=== PATIENT | female | born 2000 | race Caucasian/White ===

== ENCOUNTER 2019-02-04 21:07 | Emergency (ER) | payer SELFPAY ==
[2019-02-04 21:27] LABS: Pregnancy Test - Urine (BHCG) POSITIVE (Negative)
[2019-02-04 21:28] LABS: Pregu Control Background? CLEAR/WHITE (CLR/WHITE); Pregu Control Bar Appear? YES (CONTROL BAR); Specific Gravity 1.002 (1.002-1.036)
[2019-02-04 21:30] LABS: Clarity Cloudy (Clear); Specific Gravity, Urine 1.002 (1.002-1.036); pH, Urine 5.5 (5.0-9.0)
[2019-02-04 21:31] LABS: Bilirubin Negative (Negative); Blood, Urine Trace (Negative); Glucose, Urine (Dipstick) Negative (Negative); Leukocyte Large (Negative); Nitrite Negative (Negative); Protein, Urine (Dipstick) Negative (Neg-Trace); Urobilinogen 0.2 mg/dL (0.2-1.0)
[2019-02-04 21:38] LABS: Bacteria/HPF Rare-Few HPF (None Seen); RBC/HPF 0-3 HPF (0-3); Squamous Epithelial 0-3 HPF (0-3)
[2019-02-04 21:55] LABS: #Basophils 0.1 thou/uL (0.0-0.2); #Eosinphils 0.2 thou/uL (0.0-0.7); #Lymphocytes 3.3 thou/uL (1.20-3.40); #Monocytes 0.6 thou/uL (0.11-0.59); #Neutrophils 5.9 thou/uL (1.40-6.50); %Basophils 0.9 % (0.0-1.0); %Eosinophils 1.7 % (0.0-10.0); %Lymphocytes 33.2 % (28.0-48.0); %Neutrophils 58.3 % (31.0-61.0); Hemoglobin 13.9 g/dL (12.0-16.0); Mean Corpuscular HGB CONC 33.1 g/dL (32.0-36.0); Mean Corpuscular Hemoglobin 30.1 pg (25.0-35.0); Mean Corpuscular Volume 90.7 fL (78.0-98.0); Mean Platelet Volume 6.7 fL (7.4-10.4); Platelet Count 291 thou/uL (130-400); Red Blood Cell (RBC) Count 4.63 mill/uL (4.00-5.20); White Blood Cell (WBC) Count 10.1 thou/uL (4.8-10.8)
[2019-02-04 22:05] LABS: Anion Gap 15 mmol/L (10-20); BUN (Urea Nitrogen) 5 mg/dL (7.0-18.7); Calc. Creatinine Clearance 0 mL/min (70-130); Carbon Dioxide 22 mmol/L (22-29); Chloride 104 mmol/L (98-107); Estimated GFR-MDRD Greater than 90; Glucose 85 mg/dL (70-105); Potassium 3.6 mmol/L (3.5-5.1); Sodium 137 mmol/L (136-145)
== END 2019-02-04 22:00 | disposition short-term general hospital (02) ==
LOC: BURERS 21:07
DX: O08.83 Urinary tract infection following an ectopic and molar pregnancy (principal); O00.90 Unspecified ectopic pregnancy without intrauterine pregnancy; Z3A.01 Less than 8 weeks gestation of pregnancy
CPT/HCPCS: 80048; 81003; 81015; 81025; 84702; 85025; 87086; 99284

== ENCOUNTER 2019-09-13 23:47 | Emergency (ER) | payer OTHER ==
[2019-09-14 00:31] LABS: #Basophils 0.1 thou/uL (0.0-0.2); #Eosinphils 0.1 thou/uL (0.0-0.7); #Lymphocytes 3.7 thou/uL (1.20-3.40); %Basophils 0.5 % (0.0-1.0); %Eosinophils 0.5 % (0.0-10.0); %Lymphocytes 23.1 % (21.0-51.0); %Monocytes 6.2 % (0.0-10.0); %Neutrophils 69.7 % (42.0-75.0); Hemoglobin 12.9 g/dL (12.0-16.0); Mean Corpuscular HGB CONC 32.4 g/dL (32.0-36.0); Mean Corpuscular Hemoglobin 31.3 pg (27.0-31.0); Mean Corpuscular Volume 96.6 fL (78.0-98.0); Platelet Count 269 thou/uL (130-400); RBC Distribution Width 12.1 % (11.5-14.5); Red Blood Cell (RBC) Count 4.13 mill/uL (4.20-5.40); White Blood Cell (WBC) Count 15.8 thou/uL (4.8-10.8)
[2019-09-14 00:37] LABS: Bilirubin Negative (Negative); Blood, Urine Negative (Negative); Clarity Slightly Cloudy (Clear); Glucose, Urine (Dipstick) Negative (Negative); Leukocyte Large (Negative); Nitrite Negative (Negative); Protein, Urine (Dipstick) Negative (Neg-Trace)
[2019-09-14 00:37] LABS: ALT (SGPT) Less than 7 U/L (8-55); AST (SGOT) 11 U/L (5-34); Albumin 3.7 g/dL (3.5-5.0); Alkaline Phosphatase 146 U/L (40-110); Anion Gap 15 mmol/L (10-20); BUN (Urea Nitrogen) 5 mg/dL (7.0-18.7); Bilirubin, Total 0.6 mg/dL (0.2-1.2); Calc. Creatinine Clearance 0 mL/min (70-130); Calcium 9.3 mg/dL (7.8-10.44); Carbon Dioxide 24 mmol/L (22-29); Chloride 104 mmol/L (98-107); Estimated GFR-MDRD Greater than 90; Globulin 3.6 g/dL (2.4-3.5); Glucose 78 mg/dL (70-105); Magnesium 1.8 mg/dL (1.6-2.6); Potassium 3.6 mmol/L (3.5-5.1); Protein, Total 7.3 g/dL (6.0-8.3); Sodium 139 mmol/L (136-145)
[2019-09-14 00:38] LABS: Bacteria/HPF 2+ HPF (None Seen); Transitional Epithelial 0-3 HPF (None Seen)
[2019-09-14] MEDS ORDERED: Cephalexin 250 MG CAP ONE (00:47)
== END 2019-09-14 00:52 | disposition home or self-care (01) ==
LOC: BURERS 23:47
DX: O99.89 Other specified diseases and conditions complicating pregnancy, childbirth and the puerperium (principal); R82.71 Bacteriuria; Z3A.38 38 weeks gestation of pregnancy; O99.333 Smoking (tobacco) complicating pregnancy, third trimester; F17.210 Nicotine dependence, cigarettes, uncomplicated
CPT/HCPCS: 80053; 81003; 81015; 83735; 84550; 85025; 87086; 99284

== ENCOUNTER 2020-03-03 13:34 | Emergency (ER) | payer MEDICAID, SELFPAY | END 2020-03-03 14:06 | disposition home or self-care (01) | LOC: BURERS 13:34 | DX: S16.1XXA Strain of muscle, fascia and tendon at neck level, initial encounter (principal); F17.210 Nicotine dependence, cigarettes, uncomplicated; V40.5XXA Car driver injured in collision with pedestrian or animal in traffic accident, initial encounter | CPT/HCPCS: 99283 ==

== ENCOUNTER 2022-03-02 12:10 | Emergency (ER) | payer MEDICAID, SELFPAY ==
[2022-03-02] MEDS ORDERED: Ondansetron PF 4 MG/2 ML Vial ONE (12:43)
[2022-03-02] MEDS ORDERED: Famotidine/PF 20 mg/2ml Vial ONE (12:43)
[2022-03-02] MEDS ORDERED: Glycopyrrolate 0.4 MG/ 2 ML VIAL ONE (12:43)
[2022-03-02 12:45] LABS: Bilirubin Large (Negative); Blood, Urine Large (Negative); Clarity Turbid (Clear); Glucose, Urine (Dipstick) 100 mg/dL (Negative); Ketone, Urine 40 mg/dL (Negative); Leukocyte Negative (Negative); Nitrite Negative (Negative); Protein, Urine (Dipstick) > or equal to 300 mg/dL (Neg-Trace); Specific Gravity, Urine 1.031 (1.002-1.036)
[2022-03-02 12:50] LABS: Bacteria/HPF 3+ HPF (None Seen); Mucous/LPF 4+ LPF (<2+); RBC/HPF Greater than 50 HPF (0-3)
[2022-03-02 12:59] LABS: Hemoglobin 14.4 g/dL (12.0-16.0); Mean Corpuscular HGB CONC 32.4 g/dL (32.0-36.0); Mean Corpuscular Hemoglobin 32.6 pg (27.0-31.0); Mean Platelet Volume 6.8 fL (7.4-10.4); Platelet Count 372 thou/uL (130-400); RBC Distribution Width 12.1 % (11.5-14.5); Red Blood Cell (RBC) Count 4.42 mill/uL (4.20-5.40); White Blood Cell (WBC) Count 25.9 thou/uL (4.8-10.8)
[2022-03-02 13:13] LABS: ALT (SGPT) 10 U/L (8-55); AST (SGOT) 11 U/L (5-34); Albumin 4.1 g/dL (3.5-5.0); Alkaline Phosphatase 65 U/L (40-110); Anion Gap 17 mmol/L (10-20); BUN (Urea Nitrogen) 10 mg/dL (7.0-18.7); Bilirubin, Total 0.5 mg/dL (0.2-1.2); Calc. Creatinine Clearance 0 mL/min (70-130); Calcium 9.1 mg/dL (7.8-10.44); Carbon Dioxide 24 mmol/L (22-29); Chloride 103 mmol/L (98-107); Globulin 3.1 g/dL (2.4-3.5); Glucose 106 mg/dL (70-105); Lipase 16 U/L (8-78); Potassium 3.2 mmol/L (3.5-5.1); Protein, Total 7.2 g/dL (6.0-8.3); Sodium 141 mmol/L (136-145)
[2022-03-02 13:16] LABS: Band 30 % (5-11); Lymphocytes 4 % (21-51); MDiff Complete? YES; Monocytes 8 % (0-10); Neutrophil 55 % (42-75); Reactive Lymphocytes 2 % (0-10)
[2022-03-02] MEDS ORDERED: Ciprofloxacin 500 MG TAB ONE (13:20)
== END 2022-03-02 14:12 | disposition home or self-care (01) ==
LOC: BURERS 12:10
DX: R19.7 Diarrhea, unspecified (principal); R10.816 Epigastric abdominal tenderness
CPT/HCPCS: 80053; 81003; 81015; 83690; 85025; 94760; 96361; 96374; 96375; J2405; S0028

== ENCOUNTER 2024-07-27 11:46 | Outpatient (CLI) | payer OTHER ==
[2024-07-27 12:22] LABS: BHCG - Serum POSITIVE (NEGATIVE); Pregs Control Background? CLEAR/WHITE (CLR/WHITE); Pregs Control Bar Appear? YES (CONTROL BAR)
== END 2024-07-27 11:47 | disposition home or self-care (01) ==
LOC: BURLAB 11:46
PROVIDERS: ATTEND Pathology Anatomic Pathology & Clinical Pathology
DX: Z00.00 Encounter for general adult medical examination without abnormal findings (principal)
CPT/HCPCS: 36415; 84703